=== PATIENT | female | born 2000 | race Two or more races ===

== ENCOUNTER 2020-03-03 21:13 | Emergency (ER) | payer OTHER ==
[2020-03-03 22:22] LABS: Urine Appearance Clear; Urine Bilirubin Negative (Negative); Urine Blood 1+ (Negative); Urine Color Colorless; Urine Glucose Negative (Negative); Urine Ketones Negative (Negative); Urine Nitrite Negative (Negative); Urine Protein Negative (Negative); Urine Specific Gravity 1.001 (1.010-1.030); Urine Urobilinogen Negative (Negative)
[2020-03-03 22:28] LABS: Urine Bacteria 1+ (Absent); Urine Red Blood Cell Trace(0-2/hpf) (Absent); Urine Squamous Epithelial Cell Present (Absent); Urine White Blood Cell Trace(0-5/hpf) (Absent)
[2020-03-03 22:49] VITALS: BP 133/95
== END 2020-03-03 22:48 | disposition home or self-care (01) ==
LOC: ED 21:13